=== PATIENT | female | born 1995 | race Caucasian/White ===

== ENCOUNTER 2025-08-05 06:13 | Inpatient (IN) | payer BC ==
[2025-08-05] MEDS ORDERED: Oxytocin 30 units/NS 500 ML 500 ML IV SCH ×2 (07:18)
[2025-08-05] MEDS ORDERED: hydrALAZINE 20 MG/ML VIAL SLOW IVP PRN ×2 (07:18→15:51)
[2025-08-05] MEDS ORDERED: Acetaminophen 500 MG TAB PO PRN (07:18)
[2025-08-05] MEDS ORDERED: Lidocaine 1% (PF) 30 ML VIAL SC PRN (07:18)
[2025-08-05] MEDS ORDERED: HYDROcodone/Acetaminophen 5/325 mg Tablet PO PRN ×2 (07:18)
[2025-08-05] MEDS ORDERED: Diphenoxylate HCl/Atropine Tablet PO PRN ×2 (07:18)
[2025-08-05] MEDS ORDERED: Methylergonovine 0.2 MG/ML VIAL IM PRN (07:18)
[2025-08-05] MEDS ORDERED: Ibuprofen 800 MG TAB PO PRN (07:18)
[2025-08-05] MEDS ORDERED: Ondansetron PF 4 MG/2 ML Vial IVP PRN ×2 (07:18→10:53)
[2025-08-05] MEDS ORDERED: Tranexamic Acid 1,000 MG/10 ML VIAL IVP PRN (07:18)
[2025-08-05] MEDS ORDERED: Carboprost 250 MCG/ML AMP IM PRN (07:18)
[2025-08-05 07:20] VITALS: BMI 31.4
[2025-08-05] MEDS: Oxytocin 30 units/NS 500 ML 500 ML ONE (07:25)
[2025-08-05 07:26] LABS: Hematocrit 35.3 % (34.9-44.5); Hemoglobin 11.6 g/dL (12.0-15.5); Mean Corpuscular Hemoglobin 25.7 pg (27.0-33.0); Mean Corpuscular Volume 78.1 fL (81.6-98.3); Platelet Count 193 10x3/uL (150-450); Red Blood Cell (RBC) Count 4.52 10x6/uL (3.90-5.03); White Blood Cell (WBC) Count 8.72 10x3/uL (3.5-10.5)
[2025-08-05 07:59] LABS: Hep B Surf Ag - L&D Non-Reactive S/CO (NonReactive)
[2025-08-05 08:01] LABS: Syphilis Antibody Index 0.04 S/CO (<1.00 Non-Reactive)
[2025-08-05] MEDS: fentaNYL/Ropivacaine Epidural 100 ML ONE (10:43)
[2025-08-05] MEDS ORDERED: diphenhydrAMINE 50 MG/ML VIAL IVP PRN (10:53)
[2025-08-05] MEDS ORDERED: Acetaminophen 325 MG TAB PO PRN (10:53)
[2025-08-05] MEDS ORDERED: Communication Order-Pharmacy FS SCH (11:00)
[2025-08-05] MEDS ORDERED: fentaNYL 2 mcg/Ropivacaine 0.2% Epidural 100 ML CADD EPIDURAL SCH (11:00)
[2025-08-05] MEDS ORDERED: diphenhydrAMINE 25 MG CAP PO PRN (15:51)
[2025-08-05] MEDS ORDERED: Preparation H Ointment 28 GM TUBE PR PRN (15:51)
[2025-08-05] MEDS ORDERED: Lanolin Ointment 7 GM TUBE TOP PRN (15:51)
[2025-08-05] MEDS ORDERED: Bisacodyl 10 MG SUPP PR PRN (15:51)
[2025-08-05] MEDS ORDERED: Milk Of Magnesia 30 ML UDCUP PO PRN (15:51)
[2025-08-05] MEDS: PHENYLEPHRINE-NS 100 MCG/ML 10 ML SYRINGE ONE (16:21)
[2025-08-05] MEDS: Ibuprofen 800 MG TAB PO SCH (17:11)
[2025-08-05] MEDS: Ferrous Sulfate 325 MG TAB PO SCH (17:12)
[2025-08-06] MEDS: Benzocaine-Menthol 82.5 ML CAN TOP PRN (08:20)
[2025-08-06] MEDS: Acetaminophen 500 MG TAB PO PRN (08:21)
[2025-08-06 11:37] VITALS: BP 107/60; TEMP 98.3
[2025-08-06] MEDS ORDERED: Lidocaine 2% MPF 10 ML AMP (For Epidural Use) ONE (12:11)
[2025-08-06] MEDS ORDERED: Bupivacaine 0.25% HCL 30 ML VIAL ONE (12:11)
[2025-08-06] MEDS: Boostrix 0.5 ML (Tdap) VIAL (>/=7 yrs of age) IM ONE (15:32)
== END 2025-08-06 16:15 | disposition home or self-care (01) | DRG 807 ==
LOC: CSHLD 06:13 → CSHPP 15:40
PROVIDERS: ADMIT Obstetrics & Gynecology; ATTEND Obstetrics & Gynecology
PROC: 10E0XZZ Delivery of Products of Conception, External Approach (ICD-10-PCS; principal; 2025-08-05)
PROC: 0KQM0ZZ Repair Perineum Muscle, Open Approach (ICD-10-PCS; 2025-08-05)
PROC: 3E033XZ Introduction of Vasopressor into Peripheral Vein, Percutaneous Approach (ICD-10-PCS; 2025-08-05)
DX: O70.1 Second degree perineal laceration during delivery (principal); Z37.0 Single live birth; Z3A.39 39 weeks gestation of pregnancy
CPT/HCPCS: 36415; 51702; 85027; 86780; 86850; 86900; 86901; 87340; J0665; J2590